=== PATIENT | male | born 1940 | race Hispanic/Latino ===

== ENCOUNTER 2018-10-21 12:24 | Inpatient (IN) | payer MEDICARE ==
[2018-10-21 13:17] VITALS: BMI 30.7
[2018-10-21] MEDS ORDERED: Sodium Chloride 0.9% 1,000 ML IV STA (13:26)
--- NOTE | 2018-10-21 13:56 | ED PDOC ---
Arrival/HPI - General Chief Complaint: Cough, Cold, Congestion Time Seen by Provider: 10/21/18 12:32 Historian: Family () - History of Present Illness Narrative History of Present Illness (Text): 10/21/18 12:32 Peter Gaming is an 78 year old male, with a past medical history of CVA, R sided weakness, aphasia, aortic stenosis, heart murmurs, Parkinson's, seizures and a-fib, who presents to the emergency department complaining of nonproductive cough since a week and a half. Patient's states patient had the flu since a week. Patient finished his tamiflu. Patient has taken tylenol. Patient's family states patient's face became red and he became dizzy after taking children's Mucinex. Patient also takes coumadin. Patient denies fevers, chills, headache, dizziness, chest pain, shortness of breath, dyspnea on exertion, food intolerance, abdominal pain, nausea, vomiting, diarrhea, back pain, neck pain, or any other complaint. Time/Duration: > week Symptom Onset: Gradual Symptom Course: Unchanged Activities at Onset: Light Context: Home Past Medical History - Provider Review Nursing Documentation Reviewed: Yes - Infectious Disease Hx of Infectious Diseases: None - Tetanus Immunization Tetanus Immunization: Unknown - Cardiac Hx Cardiac Disorders: Yes Hx Atrial Fibrillation: Yes - Pulmonary Hx Respiratory Disorders: No - Neurological Hx Neurological Disorder: Yes HX Cerebrovascular Accident: Yes (rt side paralysis) Hx Parkinson's Disease: Yes Hx Seizures: Yes - HEENT Hx HEENT Disorder: No - Renal Hx Renal Disorder: No - Endocrine/Metabolic Hx Endocrine Disorders: Yes Hx Diabetes Mellitus Type 2: Yes (niddm) - Hematological/Oncological Hx Blood Disorders: No - Integumentary Hx Dermatological Disorder: No - Musculoskeletal/Rheumatological Hx Falls: No - Gastrointestinal Hx Gastrointestinal Disorders: No - Genitourinary/Gynecological Hx Genitourinary Disorders: No - Psychiatric Hx Psychophysiologic Disorder: Yes Hx Substance Use: No - Past Surgical History Past Surgical History: No Previous - Anesthesia Hx Anesthesia: No Hx Anesthesia Reactions: No Hx Malignant Hyperthermia: No - Suicidal Assessment Feels Threatened In Home Enviroment: No Family/Social History - Physician Review Nursing Documentation Reviewed: Yes Smoking Status: Never Smoked Hx Alcohol Use: No Hx Substance Use: No Hx Substance Use Treatment: No Allergies/Home Meds Allergies/Adverse Reactions: Allergies No Known Allergies Allergy (Verified 01/06/16 14:45) Home Medications: Home Meds Medication Instructions Recorded Confirmed Warfarin [Coumadin] 4 mg PO DAILY 01/17/12 10/21/18 Calcium Carbonate/Vitamin D3 1 each PO DAILY 10/21/18 10/21/18 [Calcium 600 + Vit D 400 Softgl] Carbidopa/Levodopa/Entacapone 1 tab PO BID 10/21/18 10/21/18 [Stalevo 100] Carbidopa/Levodopa/Entacapone 1 tab PO BID 10/21/18 10/21/18 [Stalevo 150] D3 1000 1,000 iu PO DAILY 10/21/18 10/21/18 Escitalopram [Lexapro] 10 mg PO DAILY 10/21/18 10/21/18 Levetiracetam [Keppra] 750 mg PO BID 10/21/18 10/21/18 MetFORMIN [glucOPHAGE] 500 mg PO BID 10/21/18 10/21/18 Metoprolol Succinate [Kapspargo 25 mg PO DAILY 10/21/18 10/21/18 Sprinkle] Oxybutynin [Oxybutynin Chloride] 10 mg PO DAILY 10/21/18 10/21/18 Pantoprazole [Protonix] 40 mg PO BID 10/21/18 10/21/18 Primidone [Mysoline] 100 mg PO DAILY 10/21/18 10/21/18 Rosuvastatin Calcium [Crestor] 5 mg PO DAILY 10/21/18 10/21/18 Sucralfate [Carafate] 1 gm PO TID 10/21/18 10/21/18 l-Mefol/A-Cyst/Meb12/Algal Oil 1 tab PO DAILY 10/21/18 10/21/18 [Cerefolinnac] Review of Systems - Physician Review All systems were reviewed & negative as marked: Yes - Review of Systems Constitutional: absent: Fevers, Night Sweats Respiratory: Cough (nonproductive). absent: SOB Cardiovascular: absent: Chest Pain, WHITE Gastrointestinal: absent: Abdominal Pain, Diarrhea, Nausea, Vomiting, Food Intolerance Musculoskeletal: absent: Back Pain, Neck Pain Neurological: absent: Headache, Dizziness Physical Exam Vital Signs Reviewed: Yes Vital Signs Temp Pulse Resp BP Pulse Ox 10/21/18 12:50 97.4 F L 76 18 120/68 96 Temperature: Afebrile Blood Pressure: Normal Pulse: Regular Respiratory Rate: Normal Appearance: Positive for: Well-Appearing, Non-Toxic, Comfortable Pain Distress: None Mental Status: Positive for: Alert and Oriented X 3 - Systems Exam Head: Present: Atraumatic, Normocephalic Pupils: Present: PERRL Extroacular Muscles: Present: EOMI Conjunctiva: Present: Normal Mouth: Present: Moist Mucous Membranes Neck: Present: Normal Range of Motion Respiratory/Chest: Present: Decreased Breath Sounds (Coarse breath sounds bilaterally). No: Respiratory Distress, Accessory Muscle Use Cardiovascular: Present: Regular Rate and Rhythm, Normal S1, S2. No: Murmurs Abdomen: Present: Other (Soft). No: Tenderness, Distention, Peritoneal Signs Back: Present: Normal Inspection Upper Extremity: No: Cyanosis, Edema, Normal ROM (Right upper extremity contracted) Lower Extremity: Present: Normal Inspection. No: Edema Neurological: Present: GCS=15, CN II-XII Intact, Speech Normal Skin: Present: Warm, Dry, Normal Color. No: Rashes Psychiatric: Present: Alert, Oriented x 3, Normal Insight, Normal Concentration Medical Decision Making ED Course and Treatment: 10/21/18 12:32 Impression: Patient is an 78 year old male who presents to the emergency department with nonproductive cough after flu. Differential Diagnosis included but are not limited to: --PNA(CAP, post-influenza strep) --Bronchitis Plan: -- Labs -- Chest X-Ray -- IV Fluids -- IV Insertion -- Influenza A/B --Rocephin --Azithromycin -- Reassess and disposition Prior Visits: Notes and results from previous visits were reviewed. Progress Notes: 10/21/18 15:09 Labs reviewed with leukocytosis noted to 15. Shared decision making with patient abd family who are amenable to staying for observation. Discussed case with Dr. Courtney(covering for Dr. Varela) who accepts patient onto his service. - Lab Interpretations Lab Results: 10/21/18 13:49 10/21/18 13:49 Lab Results 10/21/18 13:59: pO2 36, VBG pH 7.36, VBG pCO2 47.0, VBG HCO3 26.6, VBG Total CO2 28.0, VBG O2 Sat (Calc) 76.7 H, VBG Base Excess 0.6, VBG Potassium 4.6, Glucose 207 H, Lactate 2.8 H, FiO2 21.0, Crit Value Called To ev Dolan md, Crit Value Called By [facility] wool hat finisher, Blood Gas Notified Time 1440, Sodium 134.0, Chloride 105.0, Venous Blood Potassium 4.6 10/21/18 13:49: Sodium 136, Potassium 4.5, Chloride 101, Carbon Dioxide 27, Anio n Gap 13, BUN 19, Creatinine 0.7 L, Est GFR ( Amer) > 60, Est GFR (Non-Af Amer) > 60, Random Glucose 198 H, Calcium 9.4, Magnesium 1.8, Total Bilirubin 0.4, AST 27, ALT 12, Alkaline Phosphatase 53, Troponin I < 0.01, Total Protein 7.7, Albumin 4.1, Globulin 3.6, Albumin/Globulin Ratio 1.2 10/21/18 13:49: Influenza Typ A,B (EIA) Negative for flu a/b 10/21/18 13:49: WBC 15.6 H, RBC 5.18, Hgb 12.2 L, Hct 37.9 L, MCV 73.2 L, MCH 23.6 L, MCHC 32.2, RDW 16.7 H, Plt Count 363, MPV 9.8, Neut % (Auto) 65.1, Lymph % (Auto) 25.4, [place] % (Auto) 8.9 H, Eos % (Auto) 0.4 L, Baso % (Auto) 0.2, Lymph # (Auto) 4.0 H, [place] # (Auto) 1.4 H, Eos # (Auto) 0.1, Baso # (Auto) 0.03, Absolute Neuts (auto) 10.15 H I have reviewed the lab results: Yes - RAD Interpretation Narrative RAD Interpretations (Text): 10/21/18 14:45 Reviewed Chest X-Ray, shows: FINDINGS: LUNGS: No active pulmonary disease. PLEURA: No significant pleural effusion identified, no pneumothorax apparent. CARDIOVASCULAR: No aortic atherosclerotic calcification present. Mild cardiomegaly no pulmonary vascular congestion. OSSEOUS STRUCTURES: No significant abnormalities. VISUALIZED UPPER ABDOMEN: Normal. OTHER FINDINGS: None. IMPRESSION: No active disease. Radiology Orders: 10/21/18 13:25 CHEST PORTABLE [RAD] Stat Per Assessment Nurse: Radiologist - Medication Orders Current Medication Orders: Sodium Chloride (Sodium Chloride 0.9%) 1,000 mls @ 999 mls/hr IV .Q1H1M STA Stop: 10/21/18 14:26 10/21/18 15:13 Carbidopa/Levodopa/Entacapone (Stalevo 150) 1 tab PO BID REBECCA Escitalopram Oxalate (Lexapro) 10 mg PO DAILY REBECCA Ceftriaxone Sodium (Rocephin 1 Gram Ivpb) 1 gm in 100 mls @ 100 mls/hr IVPB STAT STA; Protocol Stop: 10/21/18 15:23 Non-Formulary Medication (Levetiracetam [Keppra]) 750 mg PO BID REBECCA Non-Formulary Medication (Metoprolol Succinate [Kapspargo Sprinkle]) 25 mg PO DAILY REBECCA Non-Formulary Medication (Rosuvastatin Calcium [Crestor]) 5 mg PO DAILY REBECCA Oxybutynin Chloride (Ditropan Tab) 10 mg PO DAILY REBECCA Pantoprazole Sodium (Protonix Ec Tab) 40 mg PO DAILY REBECCA Primidone (Mysoline) 100 mg PO DAILY REBECCA Warfarin Sodium (Coumadin) 4 mg PO HS REBECCA; Protocol Discontinued Medications Azithromycin (Zithromax) 500 mg PO STAT STA; Protocol Stop: 10/21/18 14:25 Sodium Chloride (Sodium Chloride 0.9%) 1,000 mls @ 999 mls/hr IV .Q1H1M STA Stop: 10/21/18 14:26 - Scribe Statement The provider has reviewed the documentation as recorded by the Scribflaca Saldana All medical record entries made by the Donavonibflaca were at my direction and personally dictated by me. I have reviewed the chart and agree that the record accurately reflects my personal performance of the history, physical exam, medical decision making, and the department course for this patient. I have also personally directed, reviewed, and agree with the discharge instructions and disposition. Disposition/Present on Arrival - Present on Arrival Any Indicators Present on Arrival: Yes History of DVT/PE: No History of Uncontrolled Diabetes: Yes Urinary Catheter: No History of Decub. Ulcer: No History Surgical Site Infection Following: None - Disposition Have Diagnosis and Disposition been Completed?: Yes Diagnosis: Respiratory infection Disposition: HOSPITALIZED Disposition Time: 15:09 Patient Plan: Admission Condition: GOOD Forms: Figure 1 (Turkmen)
[2018-10-21 14:03] LABS: BASO # 0.03 K/mm3 (0.0-2.0); BASO % 0.2 % (0.0-3.0); EOS # 0.1 (0.0-0.7); EOS % 0.4 % (1.5-5.0); HEMOGLOBIN 12.2 g/dL (14.0-18.0); LYMPH % 25.4 % (22.0-35.0); MEAN CELL VOLUME 73.2 fl (80.0-105.0); MEAN CORPUSCULAR HEMOGLOBIN 23.6 pg (25.0-35.0); MEAN CORPUSCULAR HGB CONC 32.2 g/dl (31.0-37.0); MEAN PLATELET VOLUME 9.8 fl (7.0-11.0); MONO # 1.4 (0.1-0.6); MONO % 8.9 % (1.0-6.0); RBC 5.18 10^6/uL (3.5-6.1); RED CELL DISTRIBUTION WIDTH 16.7 % (11.5-14.5); WHITE BLOOD COUNT 15.6 10^3/uL (4.5-11.0)
[2018-10-21 14:11] LABS: ALB/GLOB RATIO 1.2 (1.1-1.8); ALBUMIN 4.1 g/dL (3.0-4.8); ALT/SGPT 12 U/L (7-56); AST/SGOT 27 U/L (17-59); BLOOD UREA NITROGEN 19 mg/dL (7-21); CALCIUM 9.4 mg/dL (8.4-10.5); GFR NON-AFRICAN AMERICAN > 60
[2018-10-21 14:22] LABS: TROPONIN I < 0.01 ng/mL
[2018-10-21] MEDS ORDERED: cefTRIAXone 1 gm 1 GM/100 ML BAG IVPB STA (14:24)
--- NOTE | 2018-10-21 14:36 | RAD ---
Date of service: 10/21/2018 HISTORY: coughing COMPARISON: 05/10/2015 FINDINGS: LUNGS: No active pulmonary disease. PLEURA: No significant pleural effusion identified, no pneumothorax apparent. CARDIOVASCULAR: No aortic atherosclerotic calcification present. Mild cardiomegaly no pulmonary vascular congestion. OSSEOUS STRUCTURES: No significant abnormalities. VISUALIZED UPPER ABDOMEN: Normal. OTHER FINDINGS: None. IMPRESSION: No active disease.
[2018-10-21 14:40] LABS: VENOUS BLOOD GAS BASE EXCESS 0.6 mmol/L (0.0-2.0); VENOUS BLOOD GAS PO2 36 mm/Hg (30-55); VENOUS BLOOD PH 7.36 (7.32-7.43)
[2018-10-21] MEDS: Metoprolol Succinate 25 mg XL Tab PO SCH ×2 (15:54→16:03)
[2018-10-21] MEDS: Pantoprazole 40 mg EC Tab PO SCH ×2 (15:54→16:03)
[2018-10-21] MEDS: Carbidopa/Levodopa/Entacapone 37.5mg-150mg-200mg PO SCH (18:39)
[2018-10-21 21:56] LABS: VENOUS BLOOD GAS BASE EXCESS 2.1 mmol/L (0.0-2.0); VENOUS BLOOD GAS PO2 32 mm/Hg (30-55); VENOUS BLOOD PH 7.35 (7.32-7.43)
[2018-10-22 07:49] LABS: INR 2.3
--- NOTE | 2018-10-22 08:05 | CP.PCM.HP ---
<Alexander Proctor - Last Filed: 10/22/18 10:29> History of Present Illness - History of Present Illness History of Present Illness: PGY-2 H&P for Dr Whitt Mr Gaming is an 78 year old male with a PMHx of CVA, R sided weakness, aphasia, aortic stenosis, heart murmurs, Parkinson's, seizure disorder, DM2 and a-fib on coumadin, who presents to the emergency department complaining of nonproductive cough for 10 days. Patient is aphasic and history was collected from . Patient's states patient likely had the flu and completeda 5 day course of tamiflu. Patient's daughter and also had similar flu-like symptoms around the same time and also completed the tamiflu course. Patient has taken tylenol for a fever he had 10 days ago. Patient also takes coumadin for a-fib. Patient denies fevers, chills, headache, dizziness, chest pain, shortness of breath, dyspnea on exertion, food intolerance, abdominal pain, nausea, vomiting, diarrhea, back pain, neck pain, or any other complaint. PMHx: CVA, R sided weakness, aphasia, aortic stenosis, heart murmurs, Parkinson's, seizure disorder, DM2 and a-fib on coumadin PSHx: none SocialHx: former smoker, lives with FamHx: denies Allergies: NKA PMD: Claudioo Neurologist: Cuca Present on Admission - Present on Admission Any Indicators Present on Admission: No Review of Systems - Review of Systems Systems not reviewed;Unavailable: Other (aphasia) Past Patient History - Infectious Disease Hx of Infectious Diseases: None - Tetanus Immunizations Tetanus Immunization: Unknown - Past Social History Smoking Status: Never Smoked - CARDIAC Hx Cardiac Disorders: Yes - PULMONARY Hx Respiratory Disorders: No - NEUROLOGICAL Hx Neurological Disorder: Yes HX Cerebrovascular Accident: Yes (rt side paralysis) Hx Parkinson's Disease: Yes Hx Seizures: Yes - HEENT Hx HEENT Problems: No - RENAL Hx Chronic Kidney Disease: No - ENDOCRINE/METABOLIC Hx Endocrine Disorders: Yes Hx Diabetes Mellitus Type 2: Yes (niddm) - HEMATOLOGICAL/ONCOLOGICAL Hx Blood Disorders: No - INTEGUMENTARY Hx Dermatological Problems: No - MUSCULOSKELETAL/RHEUMATOLOGICAL Hx Falls: No - GASTROINTESTINAL Hx Gastrointestinal Disorders: No - GENITOURINARY/GYNECOLOGICAL Hx Genitourinary Disorders: No - PSYCHIATRIC Hx Psychophysiologic Disorder: Yes - SURGICAL HISTORY Hx Surgeries: No - ANESTHESIA Hx Anesthesia: No Hx Anesthesia Reactions: No Hx Malignant Hyperthermia: No Meds Allergies/Adverse Reactions: Allergies Allergy/AdvReac Type Severity Reaction Status Date / Time No Known Allergies Allergy Verified 01/06/16 14:45 Physical Exam - Constitutional Appears: Well, Non-toxic - Head Exam Head Exam: ATRAUMATIC, NORMAL INSPECTION - Eye Exam Eye Exam: EOMI, Normal appearance, PERRL. absent: Scleral icterus - ENT Exam ENT Exam: Mucous Membranes Moist - Neck Exam Neck exam: Positive for: Normal Inspection - Respiratory Exam Respiratory Exam: Clear to Auscultation Bilateral, NORMAL BREATHING PATTERN. absent: Rales, Rhonchi, Wheezes - Cardiovascular Exam Cardiovascular Exam: REGULAR RHYTHM, +S1, +S2, Systolic Murmur. absent: Tachyca rdia - GI/Abdominal Exam GI & Abdominal Exam: Normal Bowel Sounds, Soft. absent: Tenderness - Extremities Exam Extremities exam: Positive for: normal capillary refill, normal inspection, pedal pulses present. Negative for: full ROM, tenderness - Neurological Exam Neurological exam: Alert, Motor Sensory Deficit Additional comments: motor strength 0/5 in right leg and 0/5 in right arm expressive apashia - Skin Skin Exam: Dry, Intact, Normal Color, Warm Results - Vital Signs Recent Vital Signs: Last Vital Signs Temp 98.2 F 10/22/18 06:00 Pulse 77 10/22/18 06:00 Resp 20 10/22/18 06:00 BP 147/29 L 10/22/18 06:00 Pulse Ox 97 10/22/18 06:00 - Labs Result Diagrams: 10/22/18 07:25 10/22/18 07:25 Labs: Laboratory Results - last 24 hr 10/21/18 10/21/18 10/21/18 13:49 13:49 13:49 WBC 15.6 H RBC 5.18 Hgb 12.2 L Hct 37.9 L MCV 73.2 L MCH 23.6 L MCHC 32.2 RDW 16.7 H Plt Count 363 MPV 9.8 Neut % (Auto) 65.1 Lymph % (Auto) 25.4 [place] % (Auto) 8.9 H Eos % (Auto) 0.4 L Baso % (Auto) 0.2 Lymph # (Auto) 4.0 H [place] # (Auto) 1.4 H Eos # (Auto) 0.1 Baso # (Auto) 0.03 Absolute Neuts (auto) 10.15 H PT INR pO2 VBG pH VBG pCO2 VBG HCO3 VBG Total CO2 VBG O2 Sat (Calc) VBG Base Excess VBG Potassium Glucose Lactate FiO2 Crit Value Called To Crit Value Called By Blood Gas Notified Time Sodium 136 Potassium 4.5 Chloride 101 Carbon Dioxide 27 Anion Gap 13 BUN 19 Creatinine 0.7 L Est GFR ( Amer) > 60 Est GFR (Non-Af Amer) > 60 POC Glucose (mg/dL) Random Glucose 198 H Calcium 9.4 Magnesium 1.8 Total Bilirubin 0.4 AST 27 ALT 12 Alkaline Phosphatase 53 Troponin I < 0.01 NT-Pro-B Natriuret Pep Total Protein 7.7 Albumin 4.1 Globulin 3.6 Albumin/Globulin Ratio 1.2 Venous Blood Potassium Influenza Typ A,B (EIA) Negative for flu a/b 10/21/18 10/21/18 10/21/18 13:49 13:59 18:28 WBC RBC Hgb Hct MCV MCH MCHC RDW Plt Count MPV Neut % (Auto) Lymph % (Auto) [place] % (Auto) Eos % (Auto) Baso % (Auto) Lymph # (Auto) [place] # (Auto) Eos # (Auto) Baso # (Auto) Absolute Neuts (auto) PT INR pO2 36 VBG pH 7.36 VBG pCO2 47.0 VBG HCO3 26.6 VBG Total CO2 28.0 VBG O2 Sat (Calc) 76.7 H VBG Base Excess 0.6 VBG Potassium 4.6 Glucose 207 H Lactate 2.8 H FiO2 21.0 Crit Value Called To ev Dolan md Crit Value Called By [facility] Blood Gas Notified Time 1440 Sodium 134.0 Potassium Chloride 105.0 Carbon Dioxide Anion Gap BUN Creatinine Est GFR ( Amer) Est GFR (Non-Af Amer) POC Glucose (mg/dL) 168 H Random Glucose Calcium Magnesium Total Bilirubin AST ALT Alkaline Phosphatase Troponin I NT-Pro-B Natriuret Pep 741 H Total Protein Albumin Globulin Albumin/Globulin Ratio Venous Blood Potassium 4.6 Influenza Typ A,B (EIA) 10/21/18 10/21/18 10/22/18 21:18 21:30 07:25 WBC RBC Hgb Hct MCV MCH MCHC RDW Plt Count MPV Neut % (Auto) Lymph % (Auto) [place] % (Auto) Eos % (Auto) Baso % (Auto) Lymph # (Auto) [place] # (Auto) Eos # (Auto) Baso # (Auto) Absolute Neuts (auto) PT 26.0 H INR 2.30 pO2 32 VBG pH 7.35 VBG pCO2 52.0 VBG HCO3 28.7 H VBG Total CO2 30.3 H VBG O2 Sat (Calc) 63.0 VBG Base Excess 2.1 H VBG Potassium 4.3 Glucose 163 H Lactate 1.7 FiO2 21.0 Crit Value Called To Crit Value Called By Blood Gas Notified Time Sodium 135.0 Potassium Chloride 101.0 Carbon Dioxide Anion Gap BUN Creatinine Est GFR ( Amer) Est GFR (Non-Af Amer) POC Glucose (mg/dL) 139 H Random Glucose Calcium Magnesium Total Bilirubin AST ALT Alkaline Phosphatase Troponin I NT-Pro-B Natriuret Pep Total Protein Albumin Globulin Albumin/Globulin Ratio Venous Blood Potassium 4.3 Influenza Typ A,B (EIA) Assessment & Plan - Assessment and Plan (Free Text) Plan: Mr Gaming is an 78 year old male with a PMHx of CVA, R sided weakness, aphasia, aortic stenosis, heart murmurs, Parkinson's, seizure disorder, DM2 and a-fib on coumadin, who presents to the emergency department complaining of nonproductive cough for 10 days: #URI #Leukocytosis #Cough -recently diagnosed with flu and completed tamiflu course (last week) -r/o post-influenza pneumonia; consider bronchitis -on rochephin 500mg ivpb qd and azithro 500mg ivpb qd (started 10/21) * we'll get a ekg to see his QTc -f/u CT chest w/o contrast -cxr did not show active disease -f/u blood cx, urine cx, procalc, flu swab negative -robitussin for cough #AFib -continue home coumadin -monitor INR #Seizure Disorder -continue home keprra 750mg po bid and primidone 100mg po qd -seizure precautions #Parkinson's -continue home med carvidopa/levadopa/entacapone po qd #Hx CVA w/ Residual Right-Sided Weakness -continue home lipitor 20mg po hs -aspiration precautions #Hx of DM2 #Elevated Glucose -hold home metformin #Overactive Bladder -continue home oxybutynin #GERD -protonix 40mg po qd #PPX -scds, on coumadin -protonix -HHD Discussed with Dr Bui <HaoChago - Last Filed: 10/22/18 17:30> Results - Vital Signs Recent Vital Signs: Last Vital Signs Temp 98.8 F 10/22/18 14:00 Pulse 65 10/22/18 14:00 Resp 18 10/22/18 14:00 BP 115/64 10/22/18 14:00 Pulse Ox 97 10/22/18 14:00 - Labs Result Diagrams: 10/22/18 07:25 10/22/18 07:25 Labs: Laboratory Results - last 24 hr 10/21/18 10/21/18 10/21/18 18:28 21:18 21:30 WBC RBC Hgb Hct MCV MCH MCHC RDW Plt Count MPV PT INR pO2 32 VBG pH 7.35 VBG pCO2 52.0 VBG HCO3 28.7 H VBG Total CO2 30.3 H VBG O2 Sat (Calc) 63.0 VBG Base Excess 2.1 H VBG Potassium 4.3 Sodium 135.0 Chloride 101.0 Glucose 163 H Lactate 1.7 FiO2 21.0 Potassium Carbon Dioxide Anion Gap BUN Creatinine Est GFR ( Amer) Est GFR (Non-Af Amer) POC Glucose (mg/dL) 168 H 139 H Random Glucose Calcium Phosphorus Magnesium Total Bilirubin AST ALT Alkaline Phosphatase Total Protein Albumin Globulin Albumin/Globulin Ratio Venous Blood Potassium 4.3 10/22/18 10/22/18 10/22/18 07:25 07:25 07:25 WBC 11.4 H D RBC 4.74 Hgb 10.9 L Hct 34.9 L MCV 73.6 L MCH 23.0 L MCHC 31.2 RDW 16.9 H Plt Count 322 MPV 9.5 PT 26.0 H INR 2.30 pO2 VBG pH VBG pCO2 VBG HCO3 VBG Total CO2 VBG O2 Sat (Calc) VBG Base Excess VBG Potassium Sodium 137 Chloride 103 Glucose Lactate FiO2 Potassium 4.2 Carbon Dioxide 29 Anion Gap 9 L BUN 14 Creatinine 0.8 Est GFR ( Amer) > 60 Est GFR (Non-Af Amer) > 60 POC Glucose (mg/dL) Random Glucose 141 H Calcium 9.0 Phosphorus 3.6 Magnesium 1.8 Total Bilirubin 0.5 AST 20 ALT 17 Alkaline Phosphatase 50 Total Protein 7.0 Albumin 3.7 Globulin 3.3 Albumin/Globulin Ratio 1.1 Venous Blood Potassium Assessment & Plan - Assessment and Plan (Free Text) Plan: Pt seen and examined by me. I have reviewed the note of the medical services manager and I agree with it. I have discussed the assessment and plan with the resident. I have reviewed the medications and the last labs. Pt with URI and was given IV A bx in the ER. Pt will need to be seen by ID. The pt has a CXR that is normal but he has URI symptoms. He has DM-2 and will be placed on an ISS. His Overactive bladder will be treated with Protonix. He may have a viral syndrome. BCx and UCx will be reviewed. He is Lipitor for dyslipidemia. Pt is on Coumadin for Afib.
[2018-10-22 08:07] LABS: ALB/GLOB RATIO 1.1 (1.1-1.8); ALBUMIN 3.7 g/dL (3.0-4.8); ALT/SGPT 17 U/L (7-56); AST/SGOT 20 U/L (17-59); BLOOD UREA NITROGEN 14 mg/dL (7-21); GFR NON-AFRICAN AMERICAN > 60
[2018-10-22 08:27] LABS: HEMOGLOBIN 10.9 g/dL (14.0-18.0); MEAN CELL VOLUME 73.6 fl (80.0-105.0); MEAN CORPUSCULAR HGB CONC 31.2 g/dl (31.0-37.0); MEAN PLATELET VOLUME 9.5 fl (7.0-11.0); RBC 4.74 10^6/uL (3.5-6.1); RED CELL DISTRIBUTION WIDTH 16.9 % (11.5-14.5); WHITE BLOOD COUNT 11.4 10^3/uL (4.5-11.0)
[2018-10-22] MEDS: Carbidopa/Levodopa/Entacapone 37.5mg-150mg-200mg PO SCH ×2 (09:46→17:53)
[2018-10-22] MEDS: Metoprolol Succinate 25 mg XL Tab PO SCH (09:47)
[2018-10-22] MEDS ORDERED: Azithromycin 500MG/NS 250ml 500 MG/250 ML BAG IVPB SCH (10:30)
[2018-10-22] MEDS ORDERED: cefTRIAXone 500 MG in Sodium Chloride 0.9% 50 ML IVPB SCH (10:30)
[2018-10-22] MEDS ORDERED: guaiFENesin 100 mg/5 ml Syrup UD PO PRN (10:36)
--- NOTE | 2018-10-22 12:44 | CT ---
Date of service: 10/22/2018 PROCEDURE: CT Chest without contrast HISTORY: cough r/o pne COMPARISON: 08/06/2015 TECHNIQUE: Contiguous axial images were obtained through the chest without intravenous contrast enhancement. Sagittal and coronal reconstructions were performed. Radiation dose (DLP): 895.11 mGy-cm. This CT exam was performed using one or more of the following dose reduction techniques: Automated exposure control, adjustment of the mA and/or kV according to patient size, and/or use of iterative reconstruction technique. FINDINGS: LUNGS: Evaluation of the lung is limited by respiratory motion artifact. There is no pulmonary infiltrate. There is a stable perifissural nodule in the lower right hemithorax measuring approximately 11 mm in greatest dimension. This is stable compared to 08/06/2015. There is no new mass identified. This most likely represents an intrapulmonary lymph node. MEDIASTINUM: There is aneurysmal dilatation of the ascending thoracic aorta to a diameter of 4.3 cm. There is atherosclerotic calcification of the thoracic aorta. Cardiomegaly. Mitral annular calcification. Coronary arterial calcification. Main pulmonary artery unremarkable. No vascular congestion. No lymphadenopathy. PLEURA: No pleural effusion or pneumothorax. Scattered foci of pleural calcification are identified bilaterally. There is a large calcified pleural plaque along the dome of the right hemidiaphragm. 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 BONES: No fracture. No destructive lesion. UPPER ABDOMEN: Grossly unremarkable. OTHER FINDINGS: Right retroareolar mass, 2.8 cm diameter. Possible neoplasm. Recommend evaluation with mammography and right breast ultrasound. There is minimal left gynecomastia. IMPRESSION: No infiltrate. Limited evaluation of lung as above. Stable right basilar perifissural nodule. Cardiomegaly. Aneurysmal dilatation of the ascending thoracic aorta. Right retroareolar mass concerning for neoplasm. Recommend evaluation with mammography and right breast ultrasound examination.
[2018-10-22] MEDS ORDERED: DiphenhydrAMINE 50 mg/ml Inj IVP ONE (14:33)
[2018-10-22 14:45] VITALS: RESP 18
--- NOTE | 2018-10-22 14:59 | CP.PCM.CON ---
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 Last week, he was diagnosed with Influenza and completed 5 days of Tamiflu with improvement in fever and breathing but the cough persisted. The patient has no fever or chills, no nausea or vomiting, no chest pain, no SOB at rest, no abdominal pain, no diarrhea, no dysuria, no sore throat, no rhinorrhea. Infectious diseases consult is requested to further evaluate and manage. Review of Systems - Review of Systems All systems: reviewed and no additional remarkable complaints except (as per HPI) Past Patient History - Infectious Disease Hx of Infectious Diseases: None - Tetanus Immunizations Tetanus Immunization: Unknown - Past Social History Smoking Status: Never Smoked - CARDIAC Hx Cardiac Disorders: Yes - PULMONARY Hx Respiratory Disorders: No - NEUROLOGICAL Hx Neurological Disorder: Yes HX Cerebrovascular Accident: Yes (rt side paralysis) Hx Parkinson's Disease: Yes Hx Seizures: Yes - HEENT Hx HEENT Problems: No - RENAL Hx Chronic Kidney Disease: No - ENDOCRINE/METABOLIC Hx Endocrine Disorders: Yes Hx Diabetes Mellitus Type 2: Yes (niddm) - HEMATOLOGICAL/ONCOLOGICAL Hx Blood Disorders: No - INTEGUMENTARY Hx Dermatological Problems: No - MUSCULOSKELETAL/RHEUMATOLOGICAL Hx Falls: No - GASTROINTESTINAL Hx Gastrointestinal Disorders: No - GENITOURINARY/GYNECOLOGICAL Hx Genitourinary Disorders: No - PSYCHIATRIC Hx Psychophysiologic Disorder: Yes - SURGICAL HISTORY Hx Surgeries: No - ANESTHESIA Hx Anesthesia: No Hx Anesthesia Reactions: No Hx Malignant Hyperthermia: No Meds Allergies/Adverse Reactions: Allergies Allergy/AdvReac Type Severity Reaction Status Date / Time No Known Allergies Allergy Verified 01/06/16 14:45 - Medications Medications: Current Medications Atorvastatin Calcium (Lipitor) 20 mg PO DAILY [facility] Last Admin: 10/22/18 09:46 Dose: 20 mg Carbidopa/Levodopa/Entacapone (Stalevo 150) 1 tab PO BID [facility] Last Admin: 10/22/18 09:46 Dose: 1 tab Escitalopram Oxalate (Lexapro) 10 mg PO DAILY [facility] Last Admin: 10/22/18 09:46 Dose: 10 mg Guaifenesin (Robitussin) 100 mg PO Q4H PRN PRN Reason: Cough Ceftriaxone Sodium 500 mg/ (Sodium Chloride) 50 mls @ 100 mls/hr IVPB Q24H [facility]; Protocol Azithromycin (Zithromax 500mg In Ns) 500 mg in 250 mls @ 167 mls/hr IVPB DAILY [facility]; Protocol Levetiracetam (Keppra) 750 mg PO BID [facility] Last Admin: 10/22/18 09:45 Dose: 750 mg Metoprolol Succinate (Toprol Xl) 25 mg PO DAILY [facility] Last Admin: 10/22/18 09:47 Dose: 25 mg Oxybutynin Chloride (Ditropan Tab) 10 mg PO DAILY [facility] Last Admin: 10/22/18 09:45 Dose: 10 mg Pantoprazole Sodium (Protonix Ec Tab) 40 mg PO DAILY [facility] Last Admin: 10/21/18 16:03 Dose: Not Given Primidone (Mysoline) 100 mg PO DAILY [facility] Last Admin: 10/22/18 09:46 Dose: 100 mg Warfarin Sodium (Coumadin) 4 mg PO HS [facility]; Protocol Last Admin: 10/21/18 21:06 Dose: 4 mg Physical Exam - Constitutional Appears: Chronically Ill - Head Exam Head Exam: NORMAL INSPECTION - Respiratory Exam Respiratory Exam: Decreased Breath Sounds - Cardiovascular Exam Cardiovascular Exam: +S1, +S2 - GI/Abdominal Exam GI & Abdominal Exam: Soft. absent: Tenderness Results - Vital Signs Recent Vital Signs: Last Vital Signs Temp 98.2 F 10/22/18 06:00 Pulse 79 10/22/18 09:47 Resp 20 10/22/18 06:00 BP 142/80 10/22/18 09:47 Pulse Ox 97 10/22/18 06:00 - Labs Result Diagrams: 10/22/18 07:25 10/22/18 07:25 Labs: Laboratory Results - last 24 hr 10/21/18 10/21/18 10/21/18 13:49 13:49 13:49 WBC 15.6 H RBC 5.18 Hgb 12.2 L Hct 37.9 L MCV 73.2 L MCH 23.6 L MCHC 32.2 RDW 16.7 H Plt Count 363 MPV 9.8 Neut % (Auto) 65.1 Lymph % (Auto) 25.4 Cross % (Auto) 8.9 H Eos % (Auto) 0.4 L Baso % (Auto) 0.2 Lymph # (Auto) 4.0 H Cross # (Auto) 1.4 H Eos # (Auto) 0.1 Baso # (Auto) 0.03 Absolute Neuts (auto) 10.15 H PT INR pO2 VBG pH VBG pCO2 VBG HCO3 VBG Total CO2 VBG O2 Sat (Calc) VBG Base Excess VBG Potassium Glucose Lactate FiO2 Crit Value Called To Crit Value Called By Blood Gas Notified Time Sodium 136 Potassium 4.5 Chloride 101 Carbon Dioxide 27 Anion Gap 13 BUN 19 Creatinine 0.7 L Est GFR ( Amer) > 60 Est GFR (Non-Af Amer) > 60 POC Glucose (mg/dL) Random Glucose 198 H Calcium 9.4 Phosphorus Magnesium 1.8 Total Bilirubin 0.4 AST 27 ALT 12 Alkaline Phosphatase 53 Troponin I < 0.01 NT-Pro-B Natriuret Pep Total Protein 7.7 Albumin 4.1 Globulin 3.6 Albumin/Globulin Ratio 1.2 Venous Blood Potassium Influenza Typ A,B (EIA) Negative for flu a/b 10/21/18 10/21/18 10/21/18 13:49 13:59 18:28 WBC RBC Hgb Hct MCV MCH MCHC RDW Plt Count MPV Neut % (Auto) Lymph % (Auto) Cross % (Auto) Eos % (Auto) Baso % (Auto) Lymph # (Auto) Cross # (Auto) Eos # (Auto) Baso # (Auto) Absolute Neuts (auto) PT INR pO2 36 VBG pH 7.36 VBG pCO2 47.0 VBG HCO3 26.6 VBG Total CO2 28.0 VBG O2 Sat (Calc) 76.7 H VBG Base Excess 0.6 VBG Potassium 4.6 Glucose 207 H Lactate 2.8 H FiO2 21.0 Crit Value Called To ev Dolan md Crit Value Called By [facility] Blood Gas Notified Time 1440 Sodium 134.0 Potassium Chloride 105.0 Carbon Dioxide Anion Gap BUN Creatinine Est GFR ( Amer) Est GFR (Non-Af Amer) POC Glucose (mg/dL) 168 H Random Glucose Calcium Phosphorus Magnesium Total Bilirubin AST ALT Alkaline Phosphatase Troponin I NT-Pro-B Natriuret Pep 741 H Total Protein Albumin Globulin Albumin/Globulin Ratio Venous Blood Potassium 4.6 Influenza Typ A,B (EIA) 02/10/21/18 10/22/18 21:18 21:30 07:25 WBC 11.4 H D RBC 4.74 Hgb 10.9 L Hct 34.9 L MCV 73.6 L MCH 23.0 L MCHC 31.2 RDW 16.9 H Plt Count 322 MPV 9.5 Neut % (Auto) Lymph % (Auto) Cross % (Auto) Eos % (Auto) Baso % (Auto) Lymph # (Auto) Cross # (Auto) Eos # (Auto) Baso # (Auto) Absolute Neuts (auto) PT INR pO2 32 VBG pH 7.35 VBG pCO2 52.0 VBG HCO3 28.7 H VBG Total CO2 30.3 H VBG O2 Sat (Calc) 63.0 VBG Base Excess 2.1 H VBG Potassium 4.3 Glucose 163 H Lactate 1.7 FiO2 21.0 Crit Value Called To Crit Value Called By Blood Gas Notified Time Sodium 135.0 Potassium Chloride 101.0 Carbon Dioxide Anion Gap BUN Creatinine Est GFR ( Amer) Est GFR (Non-Af Amer) POC Glucose (mg/dL) 139 H Random Glucose Calcium Phosphorus Magnesium Total Bilirubin AST ALT Alkaline Phosphatase Troponin I NT-Pro-B Natriuret Pep Total Protein Albumin Globulin Albumin/Globulin Ratio Venous Blood Potassium 4.3 Influenza Typ A,B (EIA) 10/22/18 10/22/18 07:25 07:25 WBC RBC Hgb Hct MCV MCH MCHC RDW Plt Count MPV Neut % (Auto) Lymph % (Auto) Cross % (Auto) Eos % (Auto) Baso % (Auto) Lymph # (Auto) Cross # (Auto) Eos # (Auto) Baso # (Auto) Absolute Neuts (auto) PT 26.0 H INR 2.30 pO2 VBG pH VBG pCO2 VBG HCO3 VBG Total CO2 VBG O2 Sat (Calc) VBG Base Excess VBG Potassium Glucose Lactate FiO2 Crit Value Called To Crit Value Called By Blood Gas Notified Time Sodium 137 Potassium 4.2 Chloride 103 Carbon Dioxide 29 Anion Gap 9 L BUN 14 Creatinine 0.8 Est GFR ( Amer) > 60 Est GFR (Non-Af Amer) > 60 POC Glucose (mg/dL) Random Glucose 141 H Calcium 9.0 Phosphorus 3.6 Magnesium 1.8 Total Bilirubin 0.5 AST 20 ALT 17 Alkaline Phosphatase 50 Troponin I NT-Pro-B Natriuret Pep Total Protein 7.0 Albumin 3.7 Globulin 3.3 Albumin/Globulin Ratio 1.1 Venous Blood Potassium Influenza Typ A,B (EIA) Assessment & Plan - Assessment and Plan (Free Text) Plan: Assessment consider acute bronchitis CVA with right sided weakness and aphasia aortic stenosis Parkinson's disease seizure disorder DM atrial fibrillation on anticoagulation obesity with BMI 31 Plan patient started on Zithromax and will monitor clinically reviewed CT chest which does not show infitlrates but a retroareolar mass was noted - primary medical team to address this will monitor clinically
--- NOTE | 2018-10-22 22:31 | CARD ---
APPROVED REPORT Date of service: 10/22/2018 EKG Measurement Heart [id number] <Conclusion> Atrial fibrillation Left axis deviation Inferior infarct, age undetermined Possible Anterior infarct, age undetermined NDSTT abnormalitie CCR Abnormal ECG
[2018-10-23 07:13] LABS: BASO # 0.03 K/mm3 (0.0-2.0); BASO % 0.3 % (0.0-3.0); EOS # 0.1 (0.0-0.7); EOS % 1.3 % (1.5-5.0); HEMOGLOBIN 11.3 g/dL (14.0-18.0); LYMPH # 4.3 (1.2-3.4); LYMPH % 42.3 % (22.0-35.0); MEAN CELL VOLUME 73.4 fl (80.0-105.0); MEAN CORPUSCULAR HEMOGLOBIN 22.7 pg (25.0-35.0); MEAN PLATELET VOLUME 9.4 fl (7.0-11.0); MONO # 0.8 (0.1-0.6); MONO % 8.2 % (1.0-6.0); RBC 4.97 10^6/uL (3.5-6.1); WHITE BLOOD COUNT 10.1 10^3/uL (4.5-11.0)
[2018-10-23 07:21] LABS: INR 2.06; PROTHROMBIN TIME 23.3 SECONDS (9.4-12.5)
[2018-10-23 07:38] LABS: ALB/GLOB RATIO 1.1 (1.1-1.8); ALBUMIN 3.9 g/dL (3.0-4.8); ALT/SGPT 21 U/L (7-56); AST/SGOT 30 U/L (17-59); BLOOD UREA NITROGEN 11 mg/dL (7-21); CALCIUM 9.3 mg/dL (8.4-10.5); GFR NON-AFRICAN AMERICAN > 60
[2018-10-23 09:09] VITALS: TEMP 98; O2SAT 94
[2018-10-23] MEDS ORDERED: cefTRIAXone 1 gm 1 GM/100 ML BAG IVPB SCH (10:00)
[2018-10-23] MEDS: Metoprolol Succinate 25 mg XL Tab PO SCH (10:22)
[2018-10-23] MEDS: Carbidopa/Levodopa/Entacapone 37.5mg-150mg-200mg PO SCH (10:22)
[2018-10-23] MEDS: Pantoprazole 40 mg EC Tab PO SCH (10:23)
[2018-10-23 10:28] VITALS: BP 150/63; PULSE 65
--- NOTE | 2018-10-23 14:40 | CP.PCM.DIS ---
<EsthelaAlexander R - Last Filed: 10/23/18 14:33> Provider - Provider Date of Admission: 10/21/18 15:14 Attending physician: Chago Bui MD Primary care physician: PALLAVID: Avery Consults: 10/22/18 10:18 Infectious Disease Consult Routine Comment: Consulting Provider: Kirit Hein Consulting Physician: Kirit Hein Reason for Consult: URI; recently completed tamiflu Time Spent in preparation of Discharge (in minutes): 36 Diagnosis - Discharge Diagnosis (1) Headache Status: Resolved Priority: Medium (2) Leukocytosis Status: Resolved Priority: Medium (3) Respiratory infection Status: Resolved Priority: Medium Hospital Course - Lab Results Lab Results: Micro Results 10/21/18 13:49 Blood Blood Culture - Preliminary NO GROWTH AFTER 48 HOURS 10/21/18 21:00 Blood Blood Culture - Preliminary NO GROWTH AFTER 24 HOURS Most Recent Lab Values WBC 10.1 10^3/uL (4.5-11.0) 10/23/18 06:45 RBC 4.97 10^6/uL (3.5-6.1) 10/23/18 06:45 Hgb 11.3 g/dL (14.0-18.0) L 10/23/18 06:45 Hct 36.5 % (42.0-52.0) L 10/23/18 06:45 MCV 73.4 fl (80.0-105.0) L 10/23/18 06:45 MCH 22.7 pg (25.0-35.0) L 10/23/18 06:45 MCHC 31.0 g/dl (31.0-37.0) 10/23/18 06:45 RDW 17.0 % (11.5-14.5) H 10/23/18 06:45 Plt Count 339 10^3/uL (120.0-450.0) 10/23/18 06:45 MPV 9.4 fl (7.0-11.0) 10/23/18 06:45 Neut % (Auto) 47.9 % (50.0-68.0) L 10/23/18 06:45 Lymph % (Auto) 42.3 % (22.0-35.0) H 10/23/18 06:45 [place] % (Auto) 8.2 % (1.0-6.0) H 10/23/18 06:45 Eos % (Auto) 1.3 % (1.5-5.0) L 10/23/18 06:45 Baso % (Auto) 0.3 % (0.0-3.0) 10/23/18 06:45 Lymph # (Auto) 4.3 (1.2-3.4) H 10/23/18 06:45 [place] # (Auto) 0.8 (0.1-0.6) H 10/23/18 06:45 Eos # (Auto) 0.1 (0.0-0.7) 10/23/18 06:45 Baso # (Auto) 0.03 K/mm3 (0.0-2.0) 10/23/18 06:45 Absolute Neuts (auto) 4.82 (1.4-6.5) 10/23/18 06:45 PT 23.3 SECONDS (9.4-12.5) H 10/23/18 06:45 INR 2.06 10/23/18 06:45 pO2 32 mm/Hg (30-55) 10/21/18 21:30 VBG pH 7.35 (7.32-7.43) 10/21/18 21:30 VBG pCO2 52.0 (40-60) 10/21/18 21:30 VBG HCO3 28.7 mmol/l (21-28) H 10/21/18 21:30 VBG Total CO2 30.3 mmol.L (22-28) H 10/21/18 21:30 VBG O2 Sat (Calc) 63.0 % (40-65) 10/21/18 21:30 VBG Base Excess 2.1 mmol/L (0.0-2.0) H 10/21/18 21:30 VBG Potassium 4.3 mmol/L (3.6-5.2) 10/21/18 21:30 Sodium 135.0 mmol/L (132-148) 10/21/18 21:30 Chloride 101.0 mmol/L (98-107) 10/21/18 21:30 Glucose 163 mg/dl (75-110) H 10/21/18 21:30 Lactate 1.7 mmol/L (0.7-2.1) 10/21/18 21:30 FiO2 21.0 % 10/21/18 21:30 Crit Value Called To ev Dolan md 10/21/18 13:59 Crit Value Called By Millie chauhan 10/21/18 13:59 Blood Gas Notified Time 1440 10/21/18 13:59 Sodium 138 mmol/L (132-148) 10/23/18 06:45 Potassium 4.5 mmol/L (3.6-5.0) 10/23/18 06:45 Chloride 103 mmol/L (98-107) 10/23/18 06:45 Carbon Dioxide 29 mmol/L (21-33) 10/23/18 06:45 Anion Gap 10 (10-20) 10/23/18 06:45 BUN 11 mg/dL (7-21) 10/23/18 06:45 Creatinine 0.8 mg/dl (0.8-1.5) 10/23/18 06:45 Est GFR ( Amer) > 60 10/23/18 06:45 Est GFR (Non-Af Amer) > 60 10/23/18 06:45 POC Glucose (mg/dL) 139 mg/dL (65-110) H 10/21/18 21:18 Random Glucose 139 mg/dL (70-110) H 10/23/18 06:45 Calcium 9.3 mg/dL (8.4-10.5) 10/23/18 06:45 Phosphorus 3.6 mg/dL (2.5-4.5) 10/22/18 07:25 Magnesium 1.8 mg/dL (1.7-2.2) 10/22/18 07:25 Total Bilirubin 0.5 mg/dL (0.2-1.3) 10/23/18 06:45 AST 30 U/L (17-59) 10/23/18 06:45 ALT 21 U/L (7-56) 10/23/18 06:45 Alkaline Phosphatase 51 U/L (38-126) 10/23/18 06:45 Troponin I < 0.01 ng/mL 10/21/18 13:49 NT-Pro-B Natriuret Pep 741 pg/mL (0-450) H 10/21/18 13:49 Total Protein 7.4 g/dL (5.8-8.3) 10/23/18 06:45 Albumin 3.9 g/dL (3.0-4.8) 10/23/18 06:45 Globulin 3.5 gm/dL 10/23/18 06:45 Albumin/Globulin Ratio 1.1 (1.1-1.8) 10/23/18 06:45 Procalcitonin < 0.05 NG/ML (0.19-0.49) L 10/22/18 11:00 Venous Blood Potassium 4.3 mmol/L (3.6-5.2) 10/21/18 21:30 Influenza Typ A,B (EIA) Negative for flu a/b (NEGATIVE) 10/21/18 13:49 - Hospital Course Hospital Course: Mr Gaming is an 78 year old male with a PMHx of CVA, R sided weakness, aphasia, aortic stenosis, heart murmurs, Parkinson's, seizure disorder, DM2 and a-fib on coumadin, who presents to the emergency department complaining of nonproductive cough for 10 days. Patient is aphasic and history was collected from . Patient's states patient likely had the flu and completeda 5 day course of tamiflu. Patient's daughter and also had similar flu-like symptoms around the same time and also completed the tamiflu course. Patient has taken tylenol for a fever he had 10 days ago. Patient also takes coumadin for a-fib. Patient denies fevers, chills, headache, dizziness, chest pain, shortness of breath, dyspnea on exertion, food intolerance, abdominal pain, nausea, vomiting, diarrhea, back pain, neck pain, or any other complaint. PMHx: CVA, R sided weakness, aphasia, aortic stenosis, heart murmurs, Parkinson's, seizure disorder, DM2 and a-fib on coumadin PSHx: none SocialHx: former smoker, lives with FamHx: denies Allergies: NKA PMD: Condo Neurologist: [facility] COURSE: Mr Gaming is an 78 year old male with a PMHx of CVA, R sided weakness, aphasia, aortic stenosis, heart murmurs, Parkinson's, seizure disorder, DM2 and a-fib on coumadin, who presents to the emergency department complaining of nonproductive cough for 10 days: #URI #Leukocytosis, Resolved #Cough, Improved -recently diagnosed with flu and completed tamiflu course (last week) -r/o post-influenza pneumonia; consider bronchitis -on rochephin 500mg ivpb qd and azithro 500mg ivpb qd (started 10/21 and discontinued 10/22 due to headache/itchiness of right arm - started doxy 100mg po qd instead) * QTc 460 -CT chest w/o contrast * No infiltrate. Limited evaluation of lung as above. Stable right basilar perifissural nodule. Cardiomegaly. Aneurysmal dilatation of the ascending thoracic aorta. Right retroareolar mass 2.8cm diameter concerning for neoplasm. Recommend evaluation with mammography and right breast ultrasound examination. -cxr did not show active disease -blood cx negative, f/u urine cx, procalc negative, flu swab negative -robitussin for cough #Right Retroareolar Mass -incidental finding on CT chest -advised patient and family to follow-up with oncologist in [facility] who treated his basal cell cancer -conveyed the need for mammogram and breast ultrasound to evaluate mass further #AFib -continue home coumadin -monitor INR #Seizure Disorder -continue home keprra 750mg po bid and primidone 100mg po qd -seizure precautions #Parkinson's -continue home med carvidopa/levadopa/entacapone po qd #Hx CVA w/ Residual Right-Sided Weakness -continue home lipitor 20mg po hs -aspiration precautions #Hx of DM2 #Elevated Glucose -hold home metformin #Overactive Bladder -continue home oxybutynin #GERD -protonix 40mg po qd #PPX -scds, on coumadin -protonix -HHD Discussed with Dr Bui Discharge Exam - Head Exam Head Exam: NORMAL INSPECTION - Additional Findings Additional findings: - Constitutional Appears: Well, Non-toxic - Head Exam Head Exam: ATRAUMATIC, NORMAL INSPECTION - Eye Exam Eye Exam: EOMI, Normal appearance, PERRL. absent: Scleral icterus - ENT Exam ENT Exam: Mucous Membranes Moist - Neck Exam Neck exam: Positive for: Normal Inspection - Respiratory Exam Respiratory Exam: Clear to Auscultation Bilateral, NORMAL BREATHING PATTERN. absent: Rales, Rhonchi, Wheezes - Cardiovascular Exam Cardiovascular Exam: REGULAR RHYTHM, +S1, +S2, Systolic Murmur. absent: Tachycardia - GI/Abdominal Exam GI & Abdominal Exam: Normal Bowel Sounds, Soft. absent: Tenderness - Extremities Exam Extremities exam: Positive for: normal capillary refill, normal inspection, pedal pulses present. Negative for: full ROM, tenderness - Neurological Exam Neurological exam: Alert, Motor Sensory Deficit Additional comments: motor strength 0/5 in right leg and 0/5 in right arm expressive apashia - Skin Skin Exam: Dry, Intact, Normal Color, Warm Discharge Plan - Follow Up Plan Condition: GOOD Disposition: HOME/ ROUTINE Instructions: Mammography, Flu, Adult (DC), Acute Bronchitis, Breast Ultrasound Additional Instructions: 1. Please follow-up with your primary medical doctor, Dr Varela, within 7 days. 2. It is advised you have the following imaging done to investigate the mass behind your right nipple: 1) mammogram and 2) breast ultrasound. 3. Please get in touch with your previous doctor who treated your basal cell carcinoma - please make him/her aware of the new right breast mass as it is possible the new mass is related to your previous cancer. 4. Please continue all your normal home medications. 5. You will be given a script for an antibiotic, doxycycline 100mg, take this daily for the next 5 days. 6. Please take an antibiotic yogurt daily for the next 7 days as diarrhea can be a side effect from doxycycline. 7. Please avoid sick contacts. 8. If symptoms return please go to your nearest emergency department. Referrals: Dennis Varela MD [Family Provider] - <Chago Bui - Last Filed: 10/23/18 17:23> Provider - Provider Date of Admission: 10/21/18 15:14 Attending physician: Chago Bui MD Consults: 10/22/18 10:18 Infectious Disease Consult Routine Comment: Consulting Provider: Kirit Hein Consulting Physician: Kirit Hein Reason for Consult: URI; recently completed tamiflu Hospital Course - Lab Results Lab Results: Micro Results 10/21/18 13:49 Blood Blood Culture - Preliminary NO GROWTH AFTER 48 HOURS 10/21/18 21:00 Blood Blood Culture - Preliminary NO GROWTH AFTER 24 HOURS Most Recent Lab Values WBC 10.1 10^3/uL (4.5-11.0) 10/23/18 06:45 RBC 4.97 10^6/uL (3.5-6.1) 10/23/18 06:45 Hgb 11.3 g/dL (14.0-18.0) L 10/23/18 06:45 Hct 36.5 % (42.0-52.0) L 10/23/18 06:45 MCV 73.4 fl (80.0-105.0) L 10/23/18 06:45 MCH 22.7 pg (25.0-35.0) L 10/23/18 06:45 MCHC 31.0 g/dl (31.0-37.0) 10/23/18 06:45 RDW 17.0 % (11.5-14.5) H 10/23/18 06:45 Plt Count 339 10^3/uL (120.0-450.0) 10/23/18 06:45 MPV 9.4 fl (7.0-11.0) 10/23/18 06:45 Neut % (Auto) 47.9 % (50.0-68.0) L 10/23/18 06:45 Lymph % (Auto) 42.3 % (22.0-35.0) H 10/23/18 06:45 [place] % (Auto) 8.2 % (1.0-6.0) H 10/23/18 06:45 Eos % (Auto) 1.3 % (1.5-5.0) L 10/23/18 06:45 Baso % (Auto) 0.3 % (0.0-3.0) 10/23/18 06:45 Lymph # (Auto) 4.3 (1.2-3.4) H 10/23/18 06:45 [place] # (Auto) 0.8 (0.1-0.6) H 10/23/18 06:45 Eos # (Auto) 0.1 (0.0-0.7) 10/23/18 06:45 Baso # (Auto) 0.03 K/mm3 (0.0-2.0) 10/23/18 06:45 Absolute Neuts (auto) 4.82 (1.4-6.5) 10/23/18 06:45 PT 23.3 SECONDS (9.4-12.5) H 10/23/18 06:45 INR 2.06 10/23/18 06:45 pO2 32 mm/Hg (30-55) 10/21/18 21:30 VBG pH 7.35 (7.32-7.43) 10/21/18 21:30 VBG pCO2 52.0 (40-60) 10/21/18 21:30 VBG HCO3 28.7 mmol/l (21-28) H 10/21/18 21:30 VBG Total CO2 30.3 mmol.L (22-28) H 10/21/18 21:30 VBG O2 Sat (Calc) 63.0 % (40-65) 10/21/18 21:30 VBG Base Excess 2.1 mmol/L (0.0-2.0) H 10/21/18 21:30 VBG Potassium 4.3 mmol/L (3.6-5.2) 10/21/18 21:30 Sodium 135.0 mmol/L (132-148) 10/21/18 21:30 Chloride 101.0 mmol/L (98-107) 10/21/18 21:30 Glucose 163 mg/dl (75-110) H 10/21/18 21:30 Lactate 1.7 mmol/L (0.7-2.1) 10/21/18 21:30 FiO2 21.0 % 10/21/18 21:30 Crit Value Called To ev Dolan md 10/21/18 13:59 Crit Value Called By [facility] 10/21/18 13:59 Blood Gas Notified Time 1440 10/21/18 13:59 Sodium 138 mmol/L (132-148) 10/23/18 06:45 Potassium 4.5 mmol/L (3.6-5.0) 10/23/18 06:45 Chloride 103 mmol/L (98-107) 10/23/18 06:45 Carbon Dioxide 29 mmol/L (21-33) 10/23/18 06:45 Anion Gap 10 (10-20) 10/23/18 06:45 BUN 11 mg/dL (7-21) 10/23/18 06:45 Creatinine 0.8 mg/dl (0.8-1.5) 10/23/18 06:45 Est GFR ( Amer) > 60 10/23/18 06:45 Est GFR (Non-Af Amer) > 60 10/23/18 06:45 POC Glucose (mg/dL) 139 mg/dL (65-110) H 10/21/18 21:18 Random Glucose 139 mg/dL (70-110) H 10/23/18 06:45 Calcium 9.3 mg/dL (8.4-10.5) 10/23/18 06:45 Phosphorus 3.6 mg/dL (2.5-4.5) 10/22/18 07:25 Magnesium 1.8 mg/dL (1.7-2.2) 10/22/18 07:25 Total Bilirubin 0.5 mg/dL (0.2-1.3) 10/23/18 06:45 AST 30 U/L (17-59) 10/23/18 06:45 ALT 21 U/L (7-56) 10/23/18 06:45 Alkaline Phosphatase 51 U/L (38-126) 10/23/18 06:45 Troponin I < 0.01 ng/mL 10/21/18 13:49 NT-Pro-B Natriuret Pep 741 pg/mL (0-450) H 10/21/18 13:49 Total Protein 7.4 g/dL (5.8-8.3) 10/23/18 06:45 Albumin 3.9 g/dL (3.0-4.8) 10/23/18 06:45 Globulin 3.5 gm/dL 10/23/18 06:45 Albumin/Globulin Ratio 1.1 (1.1-1.8) 10/23/18 06:45 Procalcitonin < 0.05 NG/ML (0.19-0.49) L 10/22/18 11:00 Venous Blood Potassium 4.3 mmol/L (3.6-5.2) 10/21/18 21:30 Influenza Typ A,B (EIA) Negative for flu a/b (NEGATIVE) 10/21/18 13:49 - Hospital Course Hospital Course: Pt seen and examined by me. I have reviewed the note of the back office medical assistant and I agree with it. I have discussed the assessment and plan with the resident. I have reviewed the medications and the last labs. Pt with ELLIS and URI that has improved. He has BCx that are negative. He has a R sided breast mass that will require bx. Pt's would like to wait until the pt is better to get the bx possibly in [place]. She would prefer he comes home. I spoke to ID and we had agreed to send pt home with Ronny. The pt will restart his Metformin for his DM-2. He has Sz d/o and is on Keppra. His Carbidopa and Levadopa is continuing. Will D/C home. F/u with Dr Varela.
--- NOTE | 2018-10-23 17:15 | CP.PCM.PN ---
Subjective - Date & Time of Evaluation Date of Evaluation: 10/23/18 Time of Evaluation: 10:15 - Subjective Subjective: No SOB, cough is slightly improved, no fevers. Objective - Vital Signs/Intake and Output Vital Signs (last 24 hours): Temp Pulse Resp BP Pulse Ox 98.8 F 65 18 115/64 97 10/22/18 14:00 10/22/18 14:00 10/22/18 14:00 10/22/18 14:00 10/22/18 14:00 Intake and Output: 10/22/18 10/22/18 06:59 18:59 Intake Total 250 600 Balance 250 600 - Medications Medications: Current Medications Atorvastatin Calcium (Lipitor) 20 mg PO DAILY [facility] Last Admin: 10/22/18 09:46 Dose: 20 mg Carbidopa/Levodopa/Entacapone (Stalevo 150) 1 tab PO BID [facility] Last Admin: 10/22/18 09:46 Dose: 1 tab Escitalopram Oxalate (Lexapro) 10 mg PO DAILY [facility] Last Admin: 10/22/18 09:46 Dose: 10 mg Guaifenesin (Robitussin) 100 mg PO Q4H PRN PRN Reason: Cough Azithromycin (Zithromax 500mg In Ns) 500 mg in 250 mls @ 167 mls/hr IVPB DAILY [facility]; Protocol Last Admin: 10/22/18 13:23 Dose: 167 mls/hr Ceftriaxone Sodium (Rocephin 1 Gram Ivpb) 1 gm in 100 mls @ 100 mls/hr IVPB DAILY [facility]; Protocol Levetiracetam (Keppra) 750 mg PO BID [facility] Last Admin: 10/22/18 09:45 Dose: 750 mg Metoprolol Succinate (Toprol Xl) 25 mg PO DAILY [facility] Last Admin: 10/22/18 09:47 Dose: 25 mg Oxybutynin Chloride (Ditropan Tab) 10 mg PO DAILY [facility] Last Admin: 10/22/18 09:45 Dose: 10 mg Pantoprazole Sodium (Protonix Ec Tab) 40 mg PO DAILY [facility] Last Admin: 10/21/18 16:03 Dose: Not Given Primidone (Mysoline) 100 mg PO DAILY [facility] Last Admin: 10/22/18 09:46 Dose: 100 mg Warfarin Sodium (Coumadin) 4 mg PO HS [facility]; Protocol Last Admin: 10/21/18 21:06 Dose: 4 mg - Labs Labs: 10/22/18 07:25 10/22/18 07:25 PT 26.0 SECONDS (9.4-12.5) H 10/22/18 07:25 INR 2.30 10/22/18 07:25 - Constitutional Appears: No Acute Distress, Chronically Ill - Head Exam Head Exam: NORMAL INSPECTION - Respiratory Exam Respiratory Exam: Decreased Breath Sounds - Cardiovascular Exam Cardiovascular Exam: +S1, +S2 - GI/Abdominal Exam GI & Abdominal Exam: Soft. absent: Tenderness Assessment and Plan - Assessment and Plan (Free Text) Plan: Assessment consider acute bronchitis CVA with right sided weakness and aphasia aortic stenosis Parkinson's disease seizure disorder DM atrial fibrillation on anticoagulation obesity with BMI 31 Plan patient on Zithromax day 2 and can continue this or Doxycycline to complete total 3-[address] chest which does not show infitlrates but a retroareolar mass was noted - as per Dr. Bui this will be addressed as an outpatient
== END 2018-10-23 13:57 | disposition home or self-care (01) | DRG 202 ==
LOC: ED 12:24 → ERH 15:14 → 5RSO 21:56
PROVIDERS: ADMIT Internal Medicine Nephrology; ATTEND Internal Medicine Nephrology
DX: J20.9 Acute bronchitis, unspecified (principal); I69.351 Hemiplegia and hemiparesis following cerebral infarction affecting right dominant side; J06.9 Acute upper respiratory infection, unspecified; G20 Parkinson's disease; I48.91 Unspecified atrial fibrillation; G40.909 Epilepsy, unspecified, not intractable, without status epilepticus; I35.0 Nonrheumatic aortic (valve) stenosis; E11.65 Type 2 diabetes mellitus with hyperglycemia; I71.2 Thoracic aortic aneurysm, without rupture; K21.9 Gastro-esophageal reflux disease without esophagitis; E78.5 Hyperlipidemia, unspecified; N32.81 Overactive bladder; N63.10 Unspecified lump in the right breast, unspecified quadrant; E66.9 Obesity, unspecified; Z68.31 Body mass index [BMI] 31.0-31.9, adult; I69.320 Aphasia following cerebral infarction; Z79.01 Long term (current) use of anticoagulants; Z87.891 Personal history of nicotine dependence; Z79.84 Long term (current) use of oral hypoglycemic drugs

== ENCOUNTER 2018-12-26 05:53 | Outpatient (CLI) | payer MEDICARE | END 2018-12-26 05:54 | disposition home or self-care (01) | LOC: PET-BROA 05:53 | DX: C50.021 Malignant neoplasm of nipple and areola, right male breast (principal) ==